=== PATIENT | male | born 1950 | race Caucasian/White ===

== ENCOUNTER 2016-04-20 17:37 | Emergency (ER) | payer MEDICARE ==
[~2016-04-20] VITALS: Ht 172.7 cm; Wt 72.7 kg
[2016-04-20] MEDS ORDERED: ADENOSINE 6 MG/2 ML (ADENOCARD) VIAL IV ONE ×3 (17:53→18:10)
[2016-04-20] MEDS ORDERED: meTOprolol 5 MG/5 ML (LOPRESSOR) VIAL IV ONE ×2 (17:59→18:10)
[2016-04-20] MEDS ORDERED: SODIUM CHLORIDE FLUSH 10 ML SYR IV PRN (18:10)
[2016-04-20] MEDS ORDERED: SODIUM CHLORIDE FLUSH 3 ML SYR IV PRN (18:10)
[2016-04-20] MEDS ORDERED: SODIUM CHLORIDE 250 ML IV PRN (18:10)
[2016-04-20 18:16] LABS: BASOPHILS % (AUTO) 1 % (0-2); EOSINOPHILS # (AUTO) 0.5 10^3uL; EOSINOPHILS % (AUTO) 4 % (0-4); LYMPHOCYTES # (AUTO) 2.9 X10^3; MEAN CORPUSCULAR HEMOGLOBIN 30.4 PG (26.0-34.0); MEAN CORPUSCULAR HGB CONC 35.4 g/dL (31.0-37.0); MEAN CORPUSCULAR VOLUME 86 FL (80-100); MEAN PLATELET VOLUME 10.3 FL (6.0-9.5); MONOCYTES # (AUTO) 1.6 X10^3; MONOCYTES % (AUTO) 13 % (3-11); NEUTROPHILS # (AUTO) 7.2 X10^3; NEUTROPHILS % (AUTO) 59 % (51-67); PLATELET COUNT 262 10^3uL (150-450); WHITE BLOOD COUNT 12.27 10^3uL (4.0-11.0)
[2016-04-20 18:21] LABS: ALKALINE PHOSPHATASE 33 U/L (38-126); ANION GAP 20.5 MEQ/L (3-15); BUN/CREATININE RATIO 13 (10-20); CALCULATED IONIZED CALCIUM 4.2 mg/dL (3.8-4.6); TOTAL PROTEIN 8.4 g/dL (6.4-8.5)
[2016-04-20 19:29] LABS: BILIRUBIN,URINE Negative (Negative); CLARITY,URINE Clear; COLOR,URINE Yellow; GLUCOSE, URINE (UA) Trace (Negative); LEUKOCYTE ESTERASE ,URINE Negative (Negative); PH,URINE 6.5 (5.0 - 8.0); UROBILINOGEN,URINE 0.2 mg/dL (0.2-1.0)
[2016-04-20 19:31] LABS: URINE CENTRIFUGED VOLUME 12 mL
[2016-04-20 19:32] VITALS: BP 130/87
[2016-04-20 19:36] LABS: AMPHETAMINE SCREEN, URINE Positive (Negative); CANNABINOID SCREEN, URINE Positive (Negative); METHAMPHETAMINE SCREEN URINE S NEGATIVE (NEGATIVE); OPIATE SCREEN URINE Negative (Negative); PROPOXYPHENE STAT NEGATIVE (NEGATIVE)
== END 2016-04-20 19:31 | disposition home or self-care (01) ==
LOC: ED 17:38
DX: I47.1 Supraventricular tachycardia (principal); Z72.820 Sleep deprivation
CPT/HCPCS: 36415; 71010; 80053; 81003; 81015; 84439; 84443; 84484; 85025; 85610; 93005; 96374; 96375; 99285; G0478; J0153; 80307; 84436; 99283